=== PATIENT | female | born 1945 | race Caucasian/White ===

== ENCOUNTER 2016-06-13 13:08 | Emergency (ER) | payer BC, MEDICARE, OTHER ==
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
[2016-06-13] MEDS ORDERED: NS 0.9% 1000 ML* 1,000 ML IV ONE (14:05)
[2016-06-13 14:41] VITALS: BP 147/78
== END 2016-06-13 14:39 | disposition short-term general hospital (02) ==
LOC: ED 13:08
DX: S29.9XXA Unspecified injury of thorax, initial encounter (principal); M79.604 Pain in right leg; S09.92XA Unspecified injury of nose, initial encounter; R07.9 Chest pain, unspecified; R10.9 Unspecified abdominal pain; Z87.891 Personal history of nicotine dependence; V49.9XXA Car occupant (driver) (passenger) injured in unspecified traffic accident, initial encounter; Y93.9 Activity, unspecified; Y92.9 Unspecified place or not applicable
CPT/HCPCS: 93005; 99282

== ENCOUNTER 2016-07-19 12:28 | Emergency (ER) | payer OTHER ==
[2016-07-19 13:14] VITALS: BP 142/72
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
--- NOTE | 2016-07-19 14:08 | RAD ---
HISTORY: Right-sided rib pain, fracture COMPARISONS: December 20, 2013 VIEWS: 2: Frontal dual-energy and lateral views of the chest. FINDINGS: CARDIOMEDIASTINAL SILHOUETTE: The cardiomediastinal silhouette is normal. SUMAYA: The sumaya are normal. PLEURA: The costophrenic angles are sharp. No pleural abnormalities are noted. LUNG PARENCHYMA: The lungs are clear. ABDOMEN: The upper abdomen is clear. There is no subphrenic gas. BONES AND SOFT TISSUES: Degenerative changes are noted of the spine OTHER: None. IMPRESSION: NO ACTIVE CARDIOPULMONARY DISEASE.
== END 2016-07-19 14:30 | disposition home or self-care (01) ==
LOC: UCEAST 12:28
DX: S20.211D Contusion of right front wall of thorax, subsequent encounter (principal); S22.31XD Fracture of one rib, right side, subsequent encounter for fracture with routine healing; V49.9XXD Car occupant (driver) (passenger) injured in unspecified traffic accident, subsequent encounter; R03.0 Elevated blood-pressure reading, without diagnosis of hypertension; Z88.5 Allergy status to narcotic agent; Z90.49 Acquired absence of other specified parts of digestive tract; Z87.891 Personal history of nicotine dependence
CPT/HCPCS: 71020; 99211; G0463

== ENCOUNTER 2016-10-14 06:18 | Inpatient (IN) | payer MEDICARE, BC ==
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
[~2016-10-14 06:18] MED LIST: Buffered Lidocaine 0.9% SYRIN* 5 ML/SYR SYRINGE INTRADERM ONE; Dexamethasone IV* 4 MG/ML 1 ML (4 MG) IV SLOW PU ONE; Famotidine IV* 10 MG/ML 2 ML (20 mg) IV ONE
[2016-10-14] MEDS ORDERED: Dexamethasone IV* 4 MG/ML 1 ML (4 MG) ONE (06:40)
[2016-10-14] MEDS ORDERED: Famotidine IV* 10 MG/ML 2 ML (20 mg) ONE (06:40)
[2016-10-14] MEDS ORDERED: ceFAZolin 2 GM PREMIX(*) 2 GM/50 ML BAG IVPB ONE (06:40)
[2016-10-14] MEDS ORDERED: Buffered Lidocaine 0.9% SYRIN* 5 ML/SYR SYRINGE ONE (06:40)
[2016-10-14] MEDS ORDERED: Heparin VIAL(*) 5000 UNITS/ML VIAL (FIVE THOUSAND) ONE (07:04)
[2016-10-14] MEDS ORDERED: Propofol* 10 MG/ML 20 ML BTL IV PUSH ONE (07:20)
[2016-10-14] MEDS ORDERED: Lidocaine 2% PF * 5 ML VIAL ONE (07:20)
[2016-10-14] MEDS ORDERED: Rocuronium* 10 MG/ML VIAL ONE ×2 (07:21→09:52)
[2016-10-14] MEDS ORDERED: Midazolam* 1 MG/ML 2 ML VIAL (2 MG) ONE (07:21)
[2016-10-14] MEDS ORDERED: fentaNYL* 50 MCG/ML 2 ML VIAL (100 MCG VIAL) ONE ×7 (07:21→13:24)
[2016-10-14] MEDS ORDERED: Phenylephrine IV* 40 MCG/ML 10 ML SYRINGE ONE (08:01)
[2016-10-14] MEDS ORDERED: oxyCODONE/Acetamin 5/325 MG* TAB PO PRN (08:20)
[2016-10-14] MEDS ORDERED: PROCHLORPERAZINE INJ 5 MG/ML 2 ML VIAL IV PRN (08:20)
[2016-10-14] MEDS ORDERED: EPHEDrine (Pressors)* 50 MG/ML VIAL ONE (08:26)
[2016-10-14] MEDS ORDERED: Bupivacaine 0.5% W/EPI SDV* 30 ML VIAL ONE (08:45)
[2016-10-14] MEDS ORDERED: Ondansetron INJ* 2 MG/ML VIAL ONE (09:21)
[2016-10-14] MEDS ORDERED: Glycopyrrolate IV* 0.2 MG/ML 1 ML VIAL ONE (11:48)
[2016-10-14] MEDS ORDERED: Neostigmine Methylsulfate* 2 MG/2 ML SYRINGE ONE (11:48)
[2016-10-14] MEDS ORDERED: ceFAZolin VIAL(*) 1 GM VIAL ONE (12:08)
[2016-10-14] MEDS ORDERED: Acetaminophen TAB* 325 MG PO PRN (12:29)
[2016-10-14] MEDS ORDERED: Docusate CAP* 100 MG PO PRN (12:29)
[2016-10-14] MEDS ORDERED: Ondansetron INJ* 2 MG/ML VIAL IV PRN (12:29)
--- NOTE | 2016-10-14 12:41 | PN ---
Progress Note - Progress Note Note: Brief surgical note: Pre-op: Ventral Incisional Hernias Post-op: Same Procedure: Open VIH repair with mesh Surgeon: Dr. Kang Composition Stone Applicator: Stacy Mendoza Jeanna: MACY Fluids: LR 3000 cc Drains: J-vac x2 to self suction Catheter: Montero to gravity EBL: <100 cc Findings: See dictated op note Specimen: Hernia sac
[2016-10-14] MEDS ORDERED: HYDROmorphone PCA* 20 MG/20 ML PCA.SYRING ONE (12:54)
[2016-10-14] MEDS ORDERED: HYDROmorphone PCA* 20 MG/20 ML PCA.SYRING PCA SCH (13:00)
[2016-10-14] MEDS: fentaNYL* 50 MCG/ML 2 ML VIAL (100 MCG VIAL) IV PRN ×2 (13:25→13:30)
[2016-10-14] MEDS ORDERED: NS 0.9% 1000 ML* 1,000 ML IV ONE ×2 (17:56→22:36)
[2016-10-14 20:05] LABS: Hematocrit 39 % (35-47); Hemoglobin 12.5 g/dl (12.0-16.0); Mean Corpuscular HGB Conc 32 g/dl (31-36); Mean Corpuscular Hemoglobin 27 pg (27-31); Mean Corpuscular Volume 83 fL (80-97); Mean Platelet Volume 8 um3 (7.4-10.4); Red Blood Count 4.65 10^6/ul (4.0-5.4); Red Cell Distribution Width 15 % (10.5-15); White Blood Count 12.6 10^3/ul (3.5-10.8)
[2016-10-14 20:12] LABS: Comments Flag Yes
[2016-10-14] MEDS: Heparin VIAL(*) 5000 UNITS/ML VIAL (FIVE THOUSAND) SUBCUT SCH (22:39)
[2016-10-15] MEDS: Heparin VIAL(*) 5000 UNITS/ML VIAL (FIVE THOUSAND) SUBCUT SCH ×3 (06:00→22:58)
[2016-10-15 07:43] LABS: Hematocrit 34 % (35-47); Mean Corpuscular HGB Conc 32 g/dl (31-36); Mean Corpuscular Hemoglobin 27 pg (27-31); Mean Corpuscular Volume 83 fL (80-97); Mean Platelet Volume 9 um3 (7.4-10.4); Red Blood Count 4.08 10^6/ul (4.0-5.4); Red Cell Distribution Width 16 % (10.5-15)
[2016-10-15 07:54] LABS: BUN/Creatinine Ratio 20.3 (8-20); Blood Urea Nitrogen 12 mg/dL (6-24); CO2 Carbon Dioxide 27 mmol/L (22-32); Calcium 8.7 mg/dL (8.6-10.3); Chloride 106 mmol/L (101-111); EGFR Non-African American 101.1 (>60); Glucose 115 mg/dL (70-100); Potassium 3.5 mmol/L (3.5-5.0); Sodium 133 mmol/L (133-145)
--- NOTE | 2016-10-15 07:55 | PN ---
Progress Note - Progress Note SOAP: Subjective: Without complaint today although she is not using her [employer] very much Slept a little No CP/SOB or nausea. Objective: Temp Pulse Resp BP Pulse Ox 98.8 F 93 18 116/64 98 10/15/16 03:36 10/15/16 03:36 10/15/16 07:15 10/15/16 03:36 10/15/16 07:15 Intake & Output 10/13/16 10/14/16 10/15/16 10/16/16 06:59 06:59 06:59 06:59 Intake Total 7407 Output Total 3875 Balance 3532 Weight 181 lb 9.6 oz Intake: IV Fluids 4568 LR 4568 IVPB 1998 NS (0.9%) 1998 Oral 840 Output: TD #1 60 TD #2 45 Chavez 2750 Residual 20 Chavez 16 Fr 20 Estimated Blood Loss 1000 Other: Estimated Void Medium # Bowel Movements 0 # Voids 0 EBL of 1000 cc's recorded above for OR is incorrect--EBL documented for OR was 100 cc. PEX Comfortable and awake and alert Lungs are clear Cor is RRR and slightly rapid--89 at rest on entering the room. Abd dressing is in place-incision not evaluated today. TD's in place with serosanguinous output. Chavez with clear urine Laboratory Last Values WBC 11.0 10^3/ul (3.5-10.8) H 10/15/16 07:22 RBC 4.08 10^6/ul (4.0-5.4) 10/15/16 07:22 Hgb 11.0 g/dl (12.0-16.0) L 10/15/16 07:22 Hct 34 % (35-47) L 10/15/16 07:22 MCV 83 fL (80-97) 10/15/16 07:22 MCH 27 pg (27-31) 10/15/16 07:22 MCHC 32 g/dl (31-36) 10/15/16 07:22 RDW 16 % (10.5-15) H 10/15/16 07:22 Plt Count 196 10^3/ul (150-450) 10/15/16 07:22 MPV 9 um3 (7.4-10.4) 10/15/16 07:22 Neut % (Auto) 81.0 % (38-83) 10/15/16 07:22 Lymph % (Auto) 10.6 % (25-47) L 10/15/16 07:22 Dale % (Auto) 8.2 % (1-9) 10/15/16 07:22 Eos % (Auto) 0 % (0-6) 10/15/16 07:22 Baso % (Auto) 0.2 % (0-2) 10/15/16 07:22 Absolute Neuts (auto) 8.9 10^3/ul (1.5-7.7) H 10/15/16 07:22 Absolute Lymphs (auto) 1.2 10^3/ul (1.0-4.8) 10/15/16 07:22 Absolute Monos (auto) 0.9 10^3/ul (0-0.8) H 10/15/16 07:22 Absolute Eos (auto) 0 10^3/ul (0-0.6) 10/15/16 07:22 Absolute Basos (auto) 0 10^3/ul (0-0.2) 10/15/16 07:22 Absolute Nucleated RBC 0 10^3/ul 10/15/16 07:22 Nucleated RBC % 0 10/15/16 07:22 Sodium 133 mmol/L (133-145) 10/15/16 07:22 Potassium 3.5 mmol/L (3.5-5.0) 10/15/16 07:22 Chloride 106 mmol/L (101-111) 10/15/16 07:22 Carbon Dioxide 27 mmol/L (22-32) 10/15/16 07:22 BUN 12 mg/dL (6-24) 10/15/16 07:22 Creatinine 0.59 mg/dL (0.51-0.95) 10/15/16 07:22 Est GFR ( Amer) 130.0 (>60) 10/15/16 07:22 Est GFR (Non-Af Amer) 101.1 (>60) 10/15/16 07:22 BUN/Creatinine Ratio 20.3 (8-20) H 10/15/16 07:22 Glucose 115 mg/dL (70-100) H 10/15/16 07:22 Calcium 8.7 mg/dL (8.6-10.3) 10/15/16 07:22 Assessment: POD# 1 s/p open repair with mesh of ventral incsional hernias Slight increase in heart rate--pain appears controlled and she received IV fluid bolus last night and has excellent urine output. H/H last night stable and she has no signs/symptoms of hemorrhage. There is no CP or SOB. Her resting heart rate on entering the room was 89. H/H as expected after hydration and she has normal renal function on labs today. Plan: D/C chavez Clear liquids Pulmonary toilet Increase activity--OOB and ambulate Add Toradol for pain management. Observe HR for now- if persists, consider medical consult.
[2016-10-15] MEDS: Omeprazole CAP* 20 MG PO SCH (08:37)
--- NOTE | 2016-10-15 10:47 | OP ---
CC: [facility]; Dr. Choudhury, [facility] * DATE OF OPERATION: 10/14/16 - ROOM #335 DATE OF : 47 SURGEON: Bari Kang MD. SALES SUPERINTENDENT: YORDAN English. ANESTHESIOLOGIST: Dr. Salgado ANESTHESIA: General. PRE-OP DIAGNOSES: 1. 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 2. Midline incisional ventral hernias. POST-OP DIAGNOSES: 1. 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 2. Midline incisional ventral hernias. OPERATIVE PROCEDURE: Open repair with mesh of multiple ventral incisional hernias. MESH USED: A 19.6 cm x 24.[address] mesh. ESTIMATED BLOOD LOSS: 100 cc. IV FLUIDS: 3500 cc of crystalloid. URINE OUTPUT: 450 cc. SPECIMENS: Peritoneal sac from ileostomy site. DRAINS: Two #10 TD drains were placed in the subcutaneous space on either side of the midline incision. COMPLICATIONS: None. FINDINGS: The patient had a rather large incisional hernia from the previous ileostomy in the right mid abdominal wall containing bowel in its mesentery. There were also multiple smaller incisional hernias at the midline incision at the umbilical area and slightly below. DESCRIPTION OF PROCEDURE: Written informed consent was obtained, the abdomen was marked with indelible ink and preoperative antibiotics were administered. The patient was taken to the operating room and placed in the supine position. Sequential compression devices and warming blanket were applied. General anesthesia was administered. A Montero catheter was inserted. The abdomen was prepped and draped in the usual sterile fashion. Time-out verification was completed. Initially, an incision was made in the upper midline of the previous incision in the previous scar from just above the umbilicus down to midway between the umbilicus and the pubis. This was carried down through an extensive amount of scar tissue in the midline fascia where we were able to enter the peritoneal cavity successfully superior to the umbilicus. With care, we were able to take down some fairly dense adhesions from the small bowel and colon to the anterior abdominal wall and free up the space as we sequentially opened the fascia more inferiorly developing the intraperitoneal space. Along this way, there were several ventral incisional hernias, several 2-3 cm in size, with fascial bridges which were divided. We carried this down to the midline fascia until we were able to free up more of the omentum and bowel and to the anterior abdominal wall and it did not appear that there was any more palpable hernias below this site. With care mainly on the left side, which was somewhat more virgin, there we were able to really free up the entire anterior abdominal wall. On the right side, however, there had been some previously placed mesh, which was in a retroperitoneal position, and this had somewhat "wadded up" and was adherent to some of the bowel, which we carefully were able to sharply dissect off the anterior abdominal wall down in towards the pelvis as well as laterally. We next encountered the ventral incisional hernia at the ostomy site. There was a large amount of bowel and mesentery, which was small bowel, which was reduced using a sharp dissection and pressure externally, and we were able to reduce all of this bowel back into the abdominal cavity. It was all viable. No evidence of obstruction or acute findings. This hernia defect at least was 5 cms in diameter. We then excised the hernia sac from out of the subcutaneous space and sent this for specimen. Hemostasis in this area was assured. Once this was clear, we extended the dissection through both lateral trammell intraabdominally over towards the iliac crest in preparation for mesh placement in an attempt to have plenty of fascia laterally for mesh placement and attachment. After discussion of the appropriate repair, including both intraperitoneal and onlay mesh, we decided to proceed with the intraperitoneal sublay mesh. In addition, we decided also to undermine the subcutaneous space and mobilize the abdominal wall, and this was next done both to the left and the right of the midline, taking the skin and subcutaneous fat off the anterior fascia all the way to the iliac crest and almost up to the costal margin on either side. On the right side, there was the obvious ostomy defect with the previously described dimensions. We were able to free this up and with a slight relaxing incision more lateral to this, was able to close this primarily in a transverse orientation with interrupted #1 Polysorb suture. This did not appear to be under tension. Then, once again we made a decision to use the sublay mesh technique. A 19.6 x 24.6 mesh as described above was then placed in a transverse orientation, oriented more into the right anterior abdominal wall to cover the fascial defect at the ostomy site laterally. We then proceeded to use the CapSure device to tack the mesh to the underside of the abdominal wall at about 1 cm intervals circumferentially around the mesh, which covered the fascial defect from the ostomy as well as the midline hernias nicely. There was one area in the left lower abdominal wall where there had been some adherent preperitoneal fat that I did place several horizontal mattress full fascial thickness #1 Polysorb sutures to secure the mesh to the anterior abdominal wall instead of the CapSure device as it was somewhat wrinkled in this area and I was concerned that the stapling device would not adhere this well. It should be noted that prior to placing the mesh, we had irrigated thoroughly the entire abdominal cavity and had full instrument, lap pad, and gauze counts as correct. Hemostasis was also assured. Careful evaluation of the bowel revealed no injury from the dissection. Once the mesh had been placed, it covered nicely with excellent underlap and no tension. We then proceeded to close the midline fascia primarily with interrupted #1 Polysorb suture over the mesh to protect this. The subcutaneous spaces where the undermining had been performed was then irrigated. Hemostasis was assured. TD drains were placed into these spaces and brought out through separate stab wounds lateral to the incisions, placed on suction and sutured to the skin with 3-0 Polysorb suture. The midline subcutaneous tissue was closed with two separate layers of running 2-0 Polysorb suture, but the skin was approximated with a stapling device and dry sterile dressings were applied. The patient tolerated the procedure well and was taken to the recovery room in stable condition. [id number]/[facility] #: [id number] LIONEL
[2016-10-15] MEDS: Ketorolac INJ* 15 MG/ML 1 ML VIAL IV PUSH PRN ×2 (13:32→19:31)
[2016-10-15 22:35] LABS: Hematocrit 33 % (35-47); Hemoglobin 10.8 g/dl (12.0-16.0); Mean Corpuscular HGB Conc 33 g/dl (31-36); Mean Corpuscular Hemoglobin 27 pg (27-31); Mean Corpuscular Volume 83 fL (80-97); Mean Platelet Volume 8 um3 (7.4-10.4); Red Blood Count 3.95 10^6/ul (4.0-5.4); Red Cell Distribution Width 16 % (10.5-15); White Blood Count 10.3 10^3/ul (3.5-10.8)
[2016-10-15 22:50] LABS: Albumin 3.3 g/dL (3.2-5.2); BUN/Creatinine Ratio 18.4 (8-20); Calcium 8.8 mg/dL (8.6-10.3); EGFR Non-African American 125.2 (>60); Globulin 2.5 g/dL (2-4); Potassium 3.2 mmol/L (3.5-5.0); Total Bilirubin 0.7 mg/dL (0.2-1.0); Total Protein 5.8 g/dL (6.4-8.9)
[2016-10-15 22:51] LABS: Troponin I 0.01 ng/mL (<0.04)
--- NOTE | 2016-10-15 22:51 | RAD ---
HISTORY: Unresponsive episode, now occipital headache COMPARISONS: January 08, 2015 TECHNIQUE: Multiple contiguous axial CT scans were obtained of the head without intravenous contrast. FINDINGS: HEMORRHAGE/INFARCT: There is no hemorrhage or acute infarct. MASSES/SHIFT: There is no mass or shift. EXTRA-AXIAL SPACES: There are no extra-axial fluid collections. SULCI AND VENTRICLES: The sulci and ventricles are normal in size and position for the patient's stated age. CEREBRUM: There are no focal parenchymal abnormalities. BRAINSTEM: There are no focal parenchymal abnormalities. CEREBELLUM: There are no focal parenchymal abnormalities. VESSELS: The vessels are grossly normal. PARANASAL SINUSES: The paranasal sinuses are clear. ORBITS: The orbits are unremarkable. BONES AND SOFT TISSUE: No bone or soft tissue abnormalities are noted. OTHER: None IMPRESSION: NO ACUTE INTRACRANIAL PATHOLOGY.
[2016-10-15] MEDS ORDERED: Potassium Chlor TAB* 20 MEQ TAB.ER PO ONE ×2 (23:00)
[2016-10-15] MEDS ORDERED: Naloxone* 0.4 MG/ML 1 ML VIAL IV PRN (23:48)
--- NOTE | 2016-10-16 01:05 | CONSULT ---
Consult Consult: CAT response: time called 22:10 Upon arrival nursing reports patient, a 70F POD 1 ventral hernia repair w/ mesh , was AA&O at start of shift, but now is unresponsive and unable to be roused. She was reportedly last seen at baseline 2 hours previously. She is on a fentanyl PROFESSOR OF COUNSELING, but per nursing has not activated it this shift. She had received an IV dose of ketorolac at 1931. Upon my arrival, vitals and glucose were stable. Patient did not rouse to moderate sternal rub, but resisted eye exam. More prominent sternal rub had her eyes open, but she appeared confused and speech was thickened. Facial symmetry was intact, strength was 4+ x4. Shortly into the evaluation she relapsed into relative unresponsiveness and again awakened to sternal rub, this time able to complain of chest pain and posterior headache. The chest pain was new, but she reported HX of similar JAMES. CT brain WO & labs were unrevealing excepting a mildly low K+ for which replacement and recheck was ordered. Lung: CTAB. CV: RRR. Abdomen: soft, no obvious bleeding/ ecchymosis or issues. Extremities: W&D. Further investigation by nursing yielded that the ketorolac had been pushed through her primed fentanyl GTT line resulting in an accidental overdose and her current picture. She has remained more alert and responsive. An order for PRN naloxone was given. supervisor anodizing ирина. Zonia Romero MD surgery was apprised of the situation. Assessment: plan accidental fentanyl bolus : education provided to nursing : PRN naloxone IV for decreased alertness : continue continuous pulsoximetry
[2016-10-16] MEDS: Heparin VIAL(*) 5000 UNITS/ML VIAL (FIVE THOUSAND) SUBCUT SCH ×2 (06:07→14:08)
[2016-10-16 06:15] LABS: Hematocrit 32 % (35-47); Hemoglobin 10.7 g/dl (12.0-16.0); Mean Corpuscular HGB Conc 33 g/dl (31-36); Mean Corpuscular Hemoglobin 28 pg (27-31); Mean Corpuscular Volume 84 fL (80-97); Mean Platelet Volume 9 um3 (7.4-10.4); Red Blood Count 3.88 10^6/ul (4.0-5.4); Red Cell Distribution Width 15 % (10.5-15); White Blood Count 9.3 10^3/ul (3.5-10.8)
[2016-10-16] MEDS: Ketorolac INJ* 15 MG/ML 1 ML VIAL IV PUSH PRN (06:15)
[2016-10-16 06:30] LABS: BUN/Creatinine Ratio 15.4 (8-20); Calcium 8.9 mg/dL (8.6-10.3); EGFR African American 150.4 (>60); EGFR Non-African American 116.9 (>60); Potassium 3.6 mmol/L (3.5-5.0)
[2016-10-16] MEDS ORDERED: oxyCODONE/Acetamin 5/325 MG* TAB PO PRN (09:03)
[2016-10-16] MEDS: Omeprazole CAP* 20 MG PO SCH (09:32)
--- NOTE | 2016-10-16 09:53 | PN ---
Progress Note - Progress Note SOAP: Subjective: Event of last night reviewed thoroughly-appreciate nursing and hospitalist care. Labs, EKG and CT head reviewed. This morning she feels great and has no recollection of events last night. She has minimal pain and no chest pain, headache, SOB or back pain. She has been passing flatus and has had several loose bowel movements. She would like regular food. She ambulated in the halls yesterday and would like to go home today. Objective: Temp Pulse Resp BP Pulse Ox 98.4 F 91 18 122/79 97 10/16/16 08:08 10/16/16 08:08 10/16/16 08:08 10/16/16 08:08 10/16/16 08:08 Intake & Output 10/14/16 10/15/16 10/16/16 10/17/16 06:59 06:59 06:59 06:59 Intake Total 7407 4479 262 Output Total 3875 3290 150 Balance 3532 1189 112 Weight 181 lb 9.6 oz Intake: IV Fluids 4568 2569 262 LR 4568 2569 262 IVPB 1998 NS (0.9%) 1998 Oral 840 1510 Montero Irrigate Amount 400 Output: TD #1 60 100 TD #2 45 90 Urine 3100 150 Montero 2750 Residual 20 Montero 16 Fr 20 Estimated Blood Loss 1000 Other: Estimated Void Medium # Bowel Movements 0 0 Estimated Stool Amount Small # Voids 0 PEX: Comfortable in chair Neuro: Awake and alert and NAD. Pupils are equal and reactive to light. She is oriented times three and appears to have normal judgement and insight. Lungs are clear without rales, wheezing or rhonchi Cor is RRR Abd is soft and non-distended. There are normal bowel sounds throughout and they are normoactive. The incision is clean and dry and the TD's in place with small amounts of serosanguinous fluid in the bulbs. Extremities show no edema. Laboratory Results - last 24 hr 10/15/16 10/15/16 10/15/16 22:15 22:32 22:32 WBC 10.3 RBC 3.95 L Hgb 10.8 L Hct 33 L MCV 83 MCH 27 MCHC 33 RDW 16 H Plt Count 173 MPV 8 Neut % (Auto) 83.0 Lymph % (Auto) 8.3 L [place] % (Auto) 8.4 Eos % (Auto) 0 Baso % (Auto) 0.3 Absolute Neuts (auto) 8.5 H Absolute Lymphs (auto) 0.9 L Absolute Monos (auto) 0.9 H Absolute Eos (auto) 0 Absolute Basos (auto) 0 Absolute Nucleated RBC 0 Nucleated RBC % 0 Sodium 134 Potassium 3.2 L Chloride 102 Carbon Dioxide 26 Anion Gap 6 BUN 9 Creatinine 0.49 L Est GFR ( Amer) 161.0 Est GFR (Non-Af Amer) 125.2 BUN/Creatinine Ratio 18.4 Glucose 119 H POC Glucose (mg/dL) 134 H Lactic Acid Calcium 8.8 Total Bilirubin 0.70 AST 22 ALT 13 Alkaline Phosphatase 38 Troponin I 0.01 Total Protein 5.8 L Albumin 3.3 Globulin 2.5 Albumin/Globulin Ratio 1.3 10/15/16 10/16/16 10/16/16 22:32 05:35 05:35 WBC 9.3 RBC 3.88 L Hgb 10.7 L Hct 32 L MCV 84 MCH 28 MCHC 33 RDW 15 Plt Count 175 MPV 9 Neut % (Auto) 76.8 Lymph % (Auto) 12.4 L [place] % (Auto) 10.1 H Eos % (Auto) 0.5 Baso % (Auto) 0.2 Absolute Neuts (auto) 7.1 Absolute Lymphs (auto) 1.2 Absolute Monos (auto) 0.9 H Absolute Eos (auto) 0 Absolute Basos (auto) 0 Absolute Nucleated RBC 0 Nucleated RBC % 0 Sodium 137 Potassium 3.6 Chloride 103 Carbon Dioxide 30 Anion Gap 4 BUN 8 Creatinine 0.52 Est GFR ( Amer) 150.4 Est GFR (Non-Af Amer) 116.9 BUN/Creatinine Ratio 15.4 Glucose 96 POC Glucose (mg/dL) Lactic Acid 0.6 Calcium 8.9 Total Bilirubin AST ALT Alkaline Phosphatase Troponin I Total Protein Albumin Globulin Albumin/Globulin Ratio Assessment: POD# 2 s/p open repair with mesh of multiple ventral incisional hernias Episode of unresponsiveness last night that after review and evaluation appears to have been secondary to bolus of Dilaudid through her IV line that she was using for her AUTOMATIC HEMMER. Extensive work up all unremarkable including labs, EKG and CT of the head and she has had no further symptoms or sequela. She is doing well from the surgical aspect and she would like to go home. Plan: I reviewed the episode last night and explained to her what we feel happened and I answered her questions to the best of my ability. I explained to her that we will take steps to prevent this from happening again. I do not believe further workup is necessary and we will follow her for now. The AUTOMATIC HEMMER will be d/c'd and IVF will be saline locked. Advance diet to regular TD teaching and VNA consult for home care Oral analgesia She would like to go home and I feel that if she tolerates food well and her pain is adequately controlled that she can be discharged home after lunch.
[2016-10-16 15:42] VITALS: BP 133/67
--- NOTE | 2016-10-17 01:33 | DS ---
CC: Dr. Rodriguez Choudhury, [place], [place] * DISCHARGE SUMMARY: DATE OF ADMISSION: 10/14/16 DATE OF DISCHARGE: 10/16/16 ATTENDING SURGEON: Dr. Bari Kang. (DICTATED BY YORDAN BENEDICT) HOSPITAL COURSE: Please refer to admission history and physical for admission details. The patient was taken to the operating room on 10/14/16, where she underwent an open repair of multiple ventral incisional hernias with mesh by Dr. Kang (see operative report). Her first 24 hours postop was notable for significant pain, but this was being managed. She was gradually advanced in diet. She did have an episode the night of postop day 1 of unresponsiveness that was apparently related to inadvertent flushing of her fentanyl RESTAURANT GREETER line. She did not require naloxone and as of the morning of discharge, her pain was much better. She was seen this morning by Dr. Kang. Exam on the morning of discharge, temperature 99.4, blood pressure 151/79, pulse 98, respirations 18 , room air saturation 98%. Exam per Dr. Kang (see separate note). Her Moiz-Aparicio drainage was 25 and 70 mL respectively for each over the past 24 hours, they appeared to be light serosanguineous. IMPRESSION: Status post open repair of multiple ventral hernias with mesh. PLAN: Ready for discharge. Instructions had been reviewed regarding wound care and activity. She will continue to use the abdominal binder. She will empty and record TD drainage with return check in the office within 5 to 7 days. She will resume all of her usual home medications and was advised to use naproxen or meloxicam, but not both currently. She will resume her usual Nexium 40 mg once daily, Tylenol p.r.n. and she has prescription for Percocet 5/ 325 p.r.n. YORDAN BENEDICT [id number]/[facility] #: [id number] MTDD
== END 2016-10-16 16:35 | disposition home or self-care (01) | DRG 355 ==
LOC: OR 06:18 → SSU 15:13
PROVIDERS: ADMIT Surgery; ATTEND Surgery
PROC: 0WUF0JZ Supplement Abdominal Wall with Synthetic Substitute, Open Approach (ICD-10-PCS; principal; 2016-10-14 07:45)
DX: K43.2 Incisional hernia without obstruction or gangrene (principal); E66.9 Obesity, unspecified; M19.90 Unspecified osteoarthritis, unspecified site; K21.9 Gastro-esophageal reflux disease without esophagitis; Z96.653 Presence of artificial knee joint, bilateral; T39.8X1A Poisoning by other nonopioid analgesics and antipyretics, not elsewhere classified, accidental (unintentional), initial encounter; Y92.230 Patient room in hospital as the place of occurrence of the external cause; X58.XXXA Exposure to other specified factors, initial encounter; Z79.1 Long term (current) use of non-steroidal anti-inflammatories (NSAID); Z88.5 Allergy status to narcotic agent; Z79.899 Other long term (current) drug therapy; Z68.35 Body mass index [BMI] 35.0-35.9, adult
CPT/HCPCS: 36415; 70450; 80048; 80053; 83605; 84484; 85025; 85027; 88302; 93005; 94760; A9270-GY; J0690; J1100; J1644; J1885; J2250; J2270; J2405; J2704; J3010

== ENCOUNTER 2017-11-26 07:20 | Day surgery (SDC) | payer MEDICARE, BC ==
[~2017-11-26 07:20] MED LIST changes: +Acetaminophen TAB* 325 MG PO PRN; -Dexamethasone IV* 4 MG/ML 1 ML (4 MG) IV SLOW PU ONE; -Famotidine IV* 10 MG/ML 2 ML (20 mg) IV ONE
[2017-11-26] MEDS ORDERED: Midazolam* 1 MG/ML 2 ML VIAL (2 MG) ONE ×2 (10:07→10:15)
[2017-11-26 10:41] VITALS: BP 126/91
[2017-11-26] MEDS ORDERED: Ketorolac 0.5% OPHTH (NF) 0.5 % 5 ML BTL ONE (15:24)
[2017-11-26] MEDS ORDERED: acetaZOLAMIDE TAB* 250 MG ONE (15:24)
[2017-11-26] MEDS ORDERED: Cyclopentolate 1% OPTH.SOL* 2 ML BTL ONE (15:24)
[2017-11-26] MEDS ORDERED: Phenylephrine 2.5% OPTH.SOL* 2 ML BTL ONE (15:24)
[2017-11-26] MEDS ORDERED: Neomycin/Polymy/Dex OPTH.SUSP* MAXITROL 0.1% 5 ML ONE (15:24)
[2017-11-26] MEDS ORDERED: Lidocaine 2% EPI 1:200000 MPF*10-20 ML VIAL ONE (15:24)
[2017-11-26] MEDS ORDERED: Proparacaine 0.5% OPHTH.SOL* 15 ML BTL ONE (15:24)
[2017-11-26] MEDS ORDERED: Lidocaine 1%* 5 ML VIAL ONE (15:24)
[2017-11-26] MEDS ORDERED: Povidone Iodine 5% OPTH* 30 ML BTL ONE (15:24)
--- NOTE | 2017-11-27 04:15 | OP ---
DATE OF OPERATION: 11/26/17 [facility] DATE OF : 47 SURGEON: Scott Golden MD PREOPERATIVE DIAGNOSIS: Cataract, right eye. POSTOPERATIVE DIAGNOSIS: Cataract, right eye. OPERATIVE PROCEDURE: Extracapsular cataract extraction with intraocular lens implant right eye. DESCRIPTION OF PROCEDURE: The patient was brought to the operating room after being given 1/2% Alcaine with epinephrine drops in the preoperative area. The eye was prepped and draped in the usual sterile fashion. Sterile drape and eyelid speculum were placed. Again, topical 1/2% Alcaine with epinephrine was given. A paracentesis incision was made at the 9 o'clock position with the No.75 blade. Clear cornea incision 2.2 x 2.2-mm was created at the 12 o'clock position starting at the anterior limbus using the 2.2-mm keratome. The anterior chamber was irrigated with 0.4 mL of 1% non-preservative intracameral lidocaine and filled with DisCoVisc. A capsulorrhexis was completed using the cystotome and the Utrata forceps. Hydrodissection was performed with balanced salt solution. The lens nucleus was removed with the Phacoemulsification handpiece without incident. Cortex was removed with the irrigation-aspiration handpiece. The capsular bag was re-inflated using DisCoVisc and an SN60WF 20.5 implant was inserted with the shooter. The irrigation-aspiration handpiece was used to remove all residual DisCoVisc. The eye was refilled with balanced salt solution and the wound checked and found to be watertight. Topical Maxitrol drops were given. [id number]/[facility] #: [id number] [facility]
== END 2017-11-26 10:46 | disposition home or self-care (01) ==
LOC: OREAST 07:20
PROVIDERS: ATTEND Specialist
DX: H25.811 Combined forms of age-related cataract, right eye (principal); H43.813 Vitreous degeneration, bilateral; K21.9 Gastro-esophageal reflux disease without esophagitis; M19.90 Unspecified osteoarthritis, unspecified site
CPT/HCPCS: A9270-GY; J2250; V2632

== ENCOUNTER 2017-12-03 07:39 | Day surgery (SDC) | payer MEDICARE, BC ==
[~2017-12-03 07:39] MED LIST changes: -Acetaminophen TAB* 325 MG PO PRN
[2017-12-03] MEDS ORDERED: Midazolam* 1 MG/ML 2 ML VIAL (2 MG) ONE ×2 (09:51)
[2017-12-03 10:22] VITALS: BP 122/66
[2017-12-03] MEDS ORDERED: Povidone Iodine 5% OPTH* 30 ML BTL ONE (11:05)
[2017-12-03] MEDS ORDERED: Lidocaine 2% EPI 1:200000 MPF*10-20 ML VIAL ONE (11:05)
[2017-12-03] MEDS ORDERED: Proparacaine 0.5% OPHTH.SOL* 15 ML BTL ONE (11:05)
[2017-12-03] MEDS ORDERED: Lidocaine 1%* 5 ML VIAL ONE (11:05)
[2017-12-03] MEDS ORDERED: Neomycin/Polymy/Dex OPTH.SUSP* MAXITROL 0.1% 5 ML ONE (11:05)
[2017-12-03] MEDS ORDERED: Phenylephrine 2.5% OPTH.SOL* 2 ML BTL ONE (11:05)
[2017-12-03] MEDS ORDERED: Ketorolac 0.5% OPHTH (NF) 0.5 % 5 ML BTL ONE (11:05)
[2017-12-03] MEDS ORDERED: Cyclopentolate 1% OPTH.SOL* 2 ML BTL ONE (11:05)
[2017-12-03] MEDS ORDERED: acetaZOLAMIDE TAB* 250 MG ONE (11:05)
--- NOTE | 2017-12-04 02:03 | OP ---
DATE OF OPERATION: 12/03/17 - [facility] DATE OF : 47 SURGEON: Scott Golden M.D. PREOPERATIVE DIAGNOSIS: Cataract, left eye. POSTOPERATIVE DIAGNOSIS: Cataract, left eye. OPERATIVE PROCEDURE: Extracapsular cataract extraction with intraocular lens implant, left eye. DESCRIPTION OF PROCEDURE: The patient was brought to the operating room after being given 1/2% Alcaine with epinephrine drops in the preoperative area. The eye was prepped and draped in the usual sterile fashion. Sterile drape and eyelid speculum were placed. Again, topical 1/2% Alcaine with epinephrine was given. A paracentesis incision was made at the 3 o'clock position with the No.75 blade. Clear cornea incision 2.2 x 2.2-mm was created at the 6 o'clock position starting at the anterior limbus using the 2.2-mm keratome. The anterior chamber was irrigated with 0.4 mL of 1% non-preservative intracameral lidocaine and filled with DisCoVisc. A capsulorrhexis was completed using the cystotome and the Utrata forceps. Hydrodissection was performed with balanced salt solution. The lens nucleus was removed with the Phacoemulsification handpiece without incident. Cortex was removed with the irrigation-aspiration handpiece. The capsular bag was re-inflated using DisCoVisc and an SN60WF 18.5 implant was inserted with the shooter. The irrigation-aspiration handpiece was used to remove all residual DisCoVisc. The eye was refilled with balanced salt solution and the wound checked and found to be watertight. Topical Maxitrol drops were given. [id number]/[facility] #: [id number] MTDD
== END 2017-12-03 10:25 | disposition home or self-care (01) ==
LOC: OREAST 07:39
PROVIDERS: ATTEND Specialist
DX: H25.812 Combined forms of age-related cataract, left eye (principal); H43.813 Vitreous degeneration, bilateral; K21.9 Gastro-esophageal reflux disease without esophagitis; M19.90 Unspecified osteoarthritis, unspecified site; Z68.33 Body mass index [BMI] 33.0-33.9, adult
CPT/HCPCS: A9270-GY; J2250; V2632

== ENCOUNTER 2018-05-14 17:27 | Emergency (ER) | payer MEDICARE, BC ==
[2018-05-14 17:41] VITALS: BP 139/84
[2018-05-14] MEDS ORDERED: Gelfoam 12-7 ADSORBABL SPONGE* 1 EA SPONGE TOPICAL ONE (18:01)
--- NOTE | 2018-05-14 18:12 | UC ---
Skin Complaint HPI - HPI Summary HPI Summary: 72-year-old female comes to clinic today with a chief complaint of laceration to the left thumb. This happened just prior to arrival with a knife as she was cutting an onion. Patient reports the wound is clean and bled quite a bit. She does not have diabetes. Bleeding is decreased with direct pressure. She is not on any blood thinners. No loss of range of motion or strength in the finger. - History of Current Complaint Chief Complaint: UCLaceration Time Seen by Provider: 05/14/18 17:36 Stated Complaint: THUMB LACERATION Hx Last Menstrual Period: post Pain Intensity: 6 - Allergy/Home Medications Allergies/Adverse Reactions: Allergies Allergy/AdvReac Type Severity Reaction Status Date / Time morphine Allergy Severe Hallucinati Verified 05/14/18 17:35 ons Adhesive Tape Allergy Rash Verified 05/14/18 17:35 Home Medications: Home Medications Meloxicam 7.5 mg PO DAILY 05/14/18 [History Confirmed 05/14/18] PMH/Surg Hx/FS Hx/Imm Hx Previously Healthy: Yes GI/ History: Gastroesophageal Reflux - Surgical History Surgical History: Yes Surgery Procedure, Year, and Place: 1991 [facility]. 1989 HYSTERECTOMY [facility]. 1991 CARDIAC CATH [place] ( R/T GALLBLADDER). 1997 BOWEL RESECTION [facility] 2011 TOTAL R KNEE [facility]2013 TOTAL L [place]. 2015 HERNIA REPAIR [facility] [place]. 2016 COLON SURGERY [place]. 03/16 hernia repair. Ileostomy and reversal for benign mass 2015 - Family History Known Family History: Positive: Cardiac Disease, Diabetes, Other - CA - Social History Alcohol Use: None Alcohol Amount: LAST TIME DRINKING WAS SUMMER 2015 Substance Use Type: None Smoking Status (MU): Former Smoker Type: Cigarettes Amount Used/How Often: smoked for approx 10 years, 3 ppd Have You Smoked in the Last Year: No When Did the Patient Quit Smoking/Using Tobacco: 1992 - Immunization History Most Recent Influenza Vaccination: 2013 Most Recent Tetanus Shot: UNKNOWN Most Recent Pneumonia Vaccination: NONE Review of Systems All Other Systems Reviewed And Are Negative: Yes Constitutional: Positive: Negative Skin: Positive: Other - SEE HPI ENT: Positive: Negative Respiratory: Positive: Negative Cardiovascular: Positive: Negative Gastrointestinal: Positive: Negative Motor: Positive: Negative Neurovascular: Positive: Negative Musculoskeletal: Positive: Negative Neurological: Positive: Negative Psychological: Positive: Negative Is Patient Immunocompromised?: No Physical Exam Triage Information Reviewed: Yes Appearance: Well-Appearing, No Pain Distress, Well-Nourished Vital Signs: Initial Vital Signs Temp 98.4 F 05/14/18 17:36 Pulse 79 05/14/18 17:36 Resp 16 05/14/18 17:36 BP 139/84 05/14/18 17:36 Pulse Ox 97 05/14/18 17:36 Vital Signs Reviewed: Yes Eye Exam: Normal Eyes: Positive: Conjunctiva Clear Neck exam: Normal Neck: Positive: Supple Respiratory: Positive: No respiratory distress Musculoskeletal Exam: Normal Musculoskeletal: Positive: Strength Intact, ROM Intact Neurological Exam: Normal Neurological: Positive: Alert, Muscle Tone Normal Psychological Exam: Normal Psychological: Positive: Age Appropriate Behavior Skin: Positive: Other - There is an avulsion laceration at the tip of the left thumb is 1 cm in diameter. Approximate half of it is still covered with a flap of skin. On initial examination it was still actively bleeding. Course/Dx - Course Course Of Treatment: The avulsion laceration was cleaned. With direct pressure the bleeding had almost stopped. And then Gelfoam was placed and a dressing with antibiotic ointment. No sutures were done due to the nature of the avulsion laceration. Patient is up-to-date on her tetanus. At this time the wound bled a lot and the risk of infection is low we discussed starting antibiotics with the patient but at this time she declined being on antibiotics. Patient knows to follow-up if she has any worsening or questions or concerns. - Diagnoses Provider Diagnosis: Laceration of left thumb Discharge - Sign-Out/Discharge Documenting (check all that apply): Patient Departure All imaging exams completed and their final reports reviewed: No Studies - Discharge Plan Condition: Stable Disposition: HOME Patient Education Materials: Finger Laceration (ED), Laceration Without Closure (ED) Referrals: Rodriguez Choudhury MD [Primary Care Provider] - Additional Instructions: FOLLOW UP WITH YOUR DOCTOR IF NOT COMPLETELY IMPROVED. GET RECHECKED FOR ANY WORSENING OF YOUR CONDITION OR QUESTIONS OR CONCERNS. - Billing Disposition and Condition Condition: STABLE Disposition: Home
== END 2018-05-14 18:20 | disposition home or self-care (01) ==
LOC: UCEAST 17:27
DX: S61.012A Laceration without foreign body of left thumb without damage to nail, initial encounter (principal); W26.0XXA Contact with knife, initial encounter; Y93.G1 Activity, food preparation and clean up; Y92.000 Kitchen of unspecified non-institutional (private) residence as the place of occurrence of the external cause; Z88.5 Allergy status to narcotic agent; Z91.048 Other nonmedicinal substance allergy status; Z87.891 Personal history of nicotine dependence
CPT/HCPCS: 12002; 99212; A9270-GY; G0463

== ENCOUNTER 2019-01-06 19:43 | Emergency (ER) | payer MEDICARE, BC ==
[2019-01-06 19:50] VITALS: BP 138/82
--- NOTE | 2019-01-06 21:01 | UC ---
Lower Extremity/Ankle HPI - HPI Summary HPI Summary: 73-year-old female presents with complaints of pain and bruising to her right fourth toe. States earlier today she accidentally stubbed her toe on a marble slab. Describes pain as a constant aching. Worsens with weightbearing and ambulation. Denies any numbness or tingling. - History of Current Complaint Chief Complaint: UCLowerExtremity Stated Complaint: TOE INJURY Time Seen by Provider: 01/06/19 20:46 Hx Obtained From: Patient Hx Last Menstrual Period: post Pain Intensity: 7 - Allergies/Home Medications Allergies/Adverse Reactions: Allergies Allergy/AdvReac Type Severity Reaction Status Date / Time morphine Allergy Severe Hallucinati Verified 01/06/19 19:45 ons Adhesive Tape Allergy Rash Verified 01/06/19 19:45 PMH/Surg Hx/FS Hx/Imm Hx - Additional Past Medical History Additional PMH: osteoarthritis GI/ History: Gastroesophageal Reflux - Surgical History Surgical History: Yes Surgery Procedure, Year, and Place: 1991 [facility]. 1989 HYSTERECTOMY [facility]. 1991 CARDIAC CATH [place] ( R/T GALLBLADDER). 1997 BOWEL RESECTION [facility]. 2011 TOTAL R KNEE [facility]-2013 TOTAL L KNEE. 2015 HERNIA REPAIR [facility]. 2016 COLON SURGERY [place]. 03/16 hernia repair. Ileostomy and reversal for benign mass 2015 - Family History Known Family History: Positive: Cardiac Disease, Diabetes, Other - [place] - Social History Occupation: Retired Lives: With Family Alcohol Use: None Alcohol Amount: LAST TIME DRINKING WAS SUMMER 2015 Substance Use Type: None Smoking Status (MU): Former Smoker Type: Cigarettes Amount Used/How Often: smoked for approx 10 years, 3 ppd Have You Smoked in the Last Year: No When Did the Patient Quit Smoking/Using Tobacco: 1992 - Immunization History Most Recent Influenza Vaccination: 2012 Most Recent Tetanus Shot: UNKNOWN Most Recent Pneumonia Vaccination: NONE Review of Systems All Other Systems Reviewed And Are Negative: Yes Constitutional: Positive: Negative Skin: Positive: Bruising Respiratory: Positive: Negative Cardiovascular: Positive: Negative Gastrointestinal: Positive: Negative Genitourinary: Positive: Negative Motor: Negative: Weakness Neurovascular: Negative: Decreased Sensation Musculoskeletal: Positive: Other: - See HPI Neurological: Positive: Negative Is Patient Immunocompromised?: No Physical Exam - Summary Physical Exam Summary: GENERAL APPEARANCE: Well developed, well nourished, alert and cooperative, and appears to be in no acute distress. CARDIAC: Normal S1 and S2. No S3, S4 or murmurs. Rhythm is regular. There is no peripheral edema, cyanosis or pallor. Extremities are warm and well perfused. Capillary refill is less than 2 seconds. Peripheral pulses intact. LUNGS: Clear to auscultation without rales, rhonchi, wheezing or diminished breath sounds. ABDOMEN: Positive bowel sounds. Soft, nondistended, nontender. No guarding or rebound. No masses or hepatosplenomegally. MUSKULOSKELETAL: ROM intact to all extremities. No joint erythema or tenderness. Normal muscular development. Normal gait. EXTREMITIES: Tenderness with ecchymosis to the dorsal aspect of the the right 4th toe without gross deformity. Circulation and sensation intact. SKIN: Skin normal color, texture and turgor. Triage Information Reviewed: Yes Vital Signs: Initial Vital Signs Temp 96.6 F 01/06/19 19:46 Pulse 74 01/06/19 19:46 Resp 18 01/06/19 19:46 BP 138/82 01/06/19 19:46 Pulse Ox 99 01/06/19 19:46 Vital Signs Reviewed: Yes Lower Extremity Course/Dx - Course Course Of Treatment: 73-year-old female presents with complaints of pain and bruising to her right fourth toe. States earlier today she accidentally stubbed her toe on a marble slab. Describes pain as a constant aching. Worsens with weightbearing and ambulation. Denies any numbness or tingling. Afebrile. Vital signs stable. Patient had tenderness with ecchymosis to the dorsal aspect of the the right 4th toe without gross deformity. Circulation and sensation intact. Preliminary reading of the x-ray showed no acute fracture. Patient was placed in a postop shoe. Recommending conservative treatment for a contusion of the right fourth toe including [id number] acetaminophen and RICE. She is to follow-up with orthopedic surgery in 7 days if symptoms are not improving. Anticipatory guidance and warning symptoms reviewed with the patient. Verbalizes understanding and agrees with plan of care. - Differential Dx/Diagnosis Differential Diagnosis/HQI/PQRI: Contusion, Dislocation, Fracture (Closed), Sprain Provider Diagnosis: Contusion of toe of right foot Discharge ED - Sign-Out/Discharge Documenting (check all that apply): Patient Departure All imaging exams completed and their final reports reviewed: No Studies - Discharge Plan Condition: Stable Disposition: HOME Patient Education Materials: Contusion in Adults (ED) Referrals: Rodriguez Choudhury MD [Primary Care Provider] - Neeraj Murray MD [Medical Doctor] - 7 Days Additional Instructions: The x-ray performed in the clinic today showed no evidence of a fracture. The x- ray will be reviewed by the radiologist tomorrow and we will notify you if they see anything that changes your plan of care. Rest the foot as much as possible. You may continue to walk and bear weight as tolerated. Wear the post-op shoe that applied in the clinic until you are pain-free. You may remove it to sleep and shower but should wear it all other times. Apply ice to the affected area for 15-20 minutes at least 4 times a day to help with the pain and swelling. Elevate the foot to help reduce swelling. Take acetaminophen (Tylenol) according to directions as needed for pain. Follow up with orthopedic surgery in 7 days if symptoms do not improve. Seek immediate medical attention if you have severe pain not managed with pain medication, you are unable to walk or bear any weight, develop numbness or tingling in the foot or toes, or have any worsening of symptoms. - Billing Disposition and Condition Condition: STABLE Disposition: Home
[2019-01-06] MEDS: Acetaminophen TAB* 325 MG PO ONE (21:09)
== END 2019-01-06 21:15 | disposition home or self-care (01) ==
LOC: UCEAST 19:43
DX: S90.31XA Contusion of right foot, initial encounter (principal); W22.8XXA Striking against or struck by other objects, initial encounter; Y92.9 Unspecified place or not applicable; K21.9 Gastro-esophageal reflux disease without esophagitis; Z88.5 Allergy status to narcotic agent; Z87.891 Personal history of nicotine dependence
CPT/HCPCS: 99213; A9270-GY; G0463

== ENCOUNTER 2023-05-05 20:37 | Inpatient (IN) ==
[2023-05-05] MEDS ORDERED: Ondansetron 4 mg VIAL 2 MG/ML 2 ml VIAL IV ONE (20:47)
[2023-05-05] MEDS ORDERED: NS 0.9% 1000 ml BAG 1,000 ML IV ONE (20:49)
[2023-05-05 21:17] LABS: ABS Basophils 0.1 10^3/uL (0.0-0.1); ABS Monocytes 0.3 10^3/uL (0.0-0.9); Eosinophil % 0.6 %; Hemoglobin 14.7 g/dL (11.5-14.3); Lymphocyte % 13.8 %; Mean Corpuscular Hemoglobin 30.5 pg (27-33); Mean Corpuscular Hgb Conc 34.2 g/dL (31-36); Mean Corpuscular Volume 89.1 fL (80-97); Mean Platelet Volume 8.1 fL (7.5-11.2); Platelet Count 266 10^3/uL (150-450); Red Blood Count 4.82 10^6/uL (3.63-4.92); Red Cell Distribution Width 13.1 % (12-17); White Blood Count 7.5 10^3/uL (3.8-11.8)
[2023-05-05] MEDS ORDERED: Prochlorperazine 5 mg/ml 2 ml VIAL (10 mg) IV ONE (21:24)
[2023-05-05 21:36] LABS: ALT 16 U/L (7-52); AST 29 U/L (13-39); Albumin 4.6 g/dL (3.2-5.2); Albumin/Globulin Ratio 1.4 (1-3); Alkaline Phosphatase 51 U/L (35-149); Anion Gap 9 mmol/L (2-16); Blood Urea Nitrogen 17 mg/dL (6-24); C Reactive Protein < 1.00 mg/L (<8.01); CO2 Carbon Dioxide 28 mmol/L (22-32); Calcium 10.3 mg/dL (8.6-10.3); Chloride 102 mmol/L (101-111); Creatinine, Serum 0.92 mg/dL (0.51-0.95); Globulin 3.2 g/dL (2-4); Glucose 110 mg/dL (70-100); Lipase 16 U/L (11.0-82.0); Potassium 3.2 mmol/L (3.5-5.0); Sodium 139 mmol/L (135-145); Total Bilirubin 0.6 mg/dL (0.2-1.0); Total Protein 7.8 g/dL (6.4-8.9); eGFR CKD-EPI 64.5 (>60)
[2023-05-05] MEDS ORDERED: KCL 20 MEQ/100 ML IVPREMIX 20 MEQ/100 ML BAG IV ONE (21:59)
[2023-05-05] MEDS ORDERED: Iohexol 350 (CONTRAST) 500 ML MDV IV ONE (22:03)
[2023-05-05] MEDS ORDERED: fentaNYL 100 mcg/2 ml 50 MCG/ML VIAL IV SLOW PU ONE (22:38)
[2023-05-06] MEDS ORDERED: Lactated Ringers 1000 ml BAG 1,000 ML IV ONE (02:44)
[2023-05-06] MEDS ORDERED: fentaNYL 100 mcg/2 ml 50 MCG/ML VIAL IV SLOW PU PRN (02:44)
[2023-05-06] MEDS ORDERED: Prochlorperazine 5 mg/ml 2 ml VIAL (10 mg) IV PRN (02:44)
[2023-05-06] MEDS ORDERED: Ondansetron 4 mg VIAL 2 MG/ML 2 ml VIAL IV PRN ×3 (02:44→15:45)
[2023-05-06] MEDS ORDERED: KCL 20 MEQ/100 ML IVPREMIX 20 MEQ/100 ML BAG IV ONE (03:59)
[2023-05-06] MEDS ORDERED: NS 0.9% 500 ml BAG 500 ML IV ONE (04:06)
[2023-05-06 05:28] LABS: Calcium 9.1 mg/dL (8.6-10.3); Creatinine, Serum 0.75 mg/dL (0.51-0.95); Potassium 3.5 mmol/L (3.5-5.0); eGFR CKD-EPI 82.5 (>60)
[2023-05-06 05:29] LABS: ABS Basophils 0.1 10^3/uL (0.0-0.1); ABS Lymphocytes 0.4 10^3/uL (1.0-4.8); ABS Monocytes 0.5 10^3/uL (0.0-0.9); ABS Neutrophils 8.9 10^3/uL (1.5-7.6); Hemoglobin 13.2 g/dL (11.5-14.3); Lymphocyte % 3.9 %; Mean Corpuscular Hemoglobin 30.3 pg (27-33); Mean Corpuscular Hgb Conc 33.8 g/dL (31-36); Mean Corpuscular Volume 89.7 fL (80-97); Mean Platelet Volume 8.2 fL (7.5-11.2); Platelet Count 224 10^3/uL (150-450); Red Blood Count 4.35 10^6/uL (3.63-4.92); Red Cell Distribution Width 13.3 % (12-17); White Blood Count 9.9 10^3/uL (3.8-11.8)
[2023-05-06] MEDS: Pantoprazole VIAL 40 MG VIAL IV SCH (07:21)
[2023-05-06] MEDS ORDERED: ceFAZolin 2 GM in NS PREMIX 2 GM/100 ML BAG IVPB ONE (09:27)
[2023-05-06] MEDS ORDERED: Buffered Lidocaine 1% SYRIN 1 ml INTRADERM ONE (09:46)
[2023-05-06] MEDS ORDERED: fentaNYL 100 mcg/2 ml 50 MCG/ML VIAL IV PRN (09:48)
[2023-05-06] MEDS ORDERED: Naloxone 0.4 mg VIAL 0.4 mg/ml 1 ml VIAL IV PRN (09:48)
[2023-05-06] MEDS ORDERED: Lactated Ringers 1000 ml BAG 1,000 ML IV SCH (10:00)
[2023-05-06] MEDS ORDERED: Ondansetron 4 mg VIAL 2 MG/ML 2 ml VIAL ONE (10:58)
[2023-05-06] MEDS ORDERED: Dexamethasone IV 4 MG/ML VIAL 1 ml VIAL ONE (10:58)
[2023-05-06] MEDS ORDERED: Propofol 10 MG/ML 20 ML BTL ONE (10:58)
[2023-05-06] MEDS ORDERED: Glycopyrrolate IV 0.2 MG/ML 1 ML VIAL ONE (10:58)
[2023-05-06] MEDS ORDERED: Lidocaine 2% PF 5 ML VIAL ONE (10:59)
[2023-05-06] MEDS ORDERED: Rocuronium 50 mg VIAL 10 mg/ml 5 ml VIAL (50 mg) ONE ×2 (11:01→12:20)
[2023-05-06] MEDS ORDERED: fentaNYL 100 mcg/2 ml 50 MCG/ML VIAL ONE ×2 (11:01→12:25)
[2023-05-06] MEDS ORDERED: Lidocaine 1% w EPI 1:200,000 SDV 30 ML VIAL ONE (11:01)
[2023-05-06] MEDS ORDERED: HYDROmorphone 0.5 MG/0.5 ML SYRINGE ONE (11:01)
[2023-05-06] MEDS ORDERED: Bupivacaine 0.5% SDV PF 30ML VIAL ONE (11:01)
[2023-05-06] MEDS ORDERED: Phenylephrine 40 mcg/mL 10mL (400mcg) SYRINGE ONE (11:31)
[2023-05-06] MEDS ORDERED: Acetaminophen IV 1 GM/100ML 1,000 MG/100 ML BAG IV ONE (11:50)
[2023-05-06] MEDS ORDERED: Phenylephrine IV 10 MG/ML 1 ml VIAL ONE (11:56)
[2023-05-06] MEDS ORDERED: HYDROmorphone PCA 20 MG/20 ML PCA.SYRING PCA SCH (15:45)
[2023-05-06] MEDS ORDERED: Zosyn per Pharmacy NOTE FOLLOW UP SCH (15:45)
[2023-05-06] MEDS ORDERED: Naloxone 0.4 mg VIAL 0.4 mg/ml 1 ml VIAL IV PUSH PRN (15:45)
[2023-05-06] MEDS ORDERED: Piperacillin/Tazobac 3.375 BAG 3.375 GM/100 ML BAG IV ONE (15:45)
[2023-05-06] MEDS: NS 0.9% 1000 ml BAG 1,000 ML IV SCH (18:25)
[2023-05-06] MEDS ORDERED: HYDROmorphone 1 MG/1 ML SYRINGE IV SLOW PU PRN (18:38)
[2023-05-06] MEDS ORDERED: HYDROmorphone 0.5 MG/0.5 ML SYRINGE IV SLOW PU PRN (18:38)
[2023-05-06] MEDS: ZOSYN 3.375 GM Q8H per EXTENDED INFUSION IV SCH (22:06)
[2023-05-07] MEDS: NS 0.9% 1000 ml BAG 1,000 ML IV SCH ×2 (03:27→20:31)
[2023-05-07] MEDS: ZOSYN 3.375 GM Q8H per EXTENDED INFUSION IV SCH ×3 (06:18→22:38)
[2023-05-07] MEDS: Pantoprazole VIAL 40 MG VIAL IV SCH (06:18)
[2023-05-07 06:38] LABS: ABS Lymphocytes 0.9 10^3/uL (1.0-4.8); ABS Neutrophils 10.1 10^3/uL (1.5-7.6); Hematocrit 32.5 % (35-45); Lymphocyte % 7.7 %; Mean Corpuscular Hemoglobin 30.7 pg (27-33); Mean Corpuscular Hgb Conc 33.8 g/dL (31-36); Mean Corpuscular Volume 90.8 fL (80-97); Mean Platelet Volume 8.4 fL (7.5-11.2); Platelet Count 192 10^3/uL (150-450); Red Blood Count 3.58 10^6/uL (3.63-4.92); Red Cell Distribution Width 13.6 % (12-17)
[2023-05-07 07:18] LABS: Calcium 8.4 mg/dL (8.6-10.3); Creatinine, Serum 0.79 mg/dL (0.51-0.95); Potassium 3.7 mmol/L (3.5-5.0); eGFR CKD-EPI 77.5 (>60)
[2023-05-07] MEDS: Acetaminophen IV 1 GM/100ML 1,000 MG/100 ML BAG IV PRN (11:31)
[2023-05-07] MEDS: Enoxaparin 40 MG/0.4 ML SYR SUBCUT SCH (11:50)
[2023-05-08] MEDS: NS 0.9% 1000 ml BAG 1,000 ML IV SCH (05:39)
[2023-05-08] MEDS: Pantoprazole VIAL 40 MG VIAL IV SCH (05:40)
[2023-05-08] MEDS: Acetaminophen IV 1 GM/100ML 1,000 MG/100 ML BAG IV PRN (05:41)
[2023-05-08] MEDS: ZOSYN 3.375 GM Q8H per EXTENDED INFUSION IV SCH (06:09)
[2023-05-08] MEDS: Enoxaparin 40 MG/0.4 ML SYR SUBCUT SCH (08:58)
[2023-05-08 10:58] VITALS: BP 157/80
[2023-05-08] MEDS ORDERED: Influenza vaccine *QUAD* *2023-24* 0.5 ML SYRINGE IM ONE (12:00)
== END 2023-05-08 11:53 | disposition home or self-care (01) | DRG 329 ==
LOC: ED 20:37 → EDHOLD 05-06 02:44 → SSU 05-06 08:16
PROVIDERS: ADMIT Hospitalist; ATTEND Surgery